=== PATIENT | male | born 1960 | race Caucasian/White ===

== ENCOUNTER → 2023-11-24 13:38 | Outpatient (REF) | payer MEDICARE, OTHER, SELFPAY | LOC: HWRAD 13:38 | PROVIDERS: ATTENDING PHYSICIAN Internal Medicine Rheumatology; FAMILY PHYSICIAN Nurse Practitioner Family | DX: R06.01 Orthopnea (principal); M16.10 Unilateral primary osteoarthritis, unspecified hip | CPT/HCPCS: 71046; 73523 ==

== ENCOUNTER → 2023-12-26 12:43 | Outpatient (REF) | payer MEDICARE, OTHER, SELFPAY | LOC: HWRCS 12:43 | PROVIDERS: ATTENDING PHYSICIAN Nurse Practitioner Family | DX: R06.01 Orthopnea (principal) | CPT/HCPCS: 93306 ==

== ENCOUNTER → 2024-08-19 17:05 | Outpatient (REF) | payer MEDICARE, OTHER, SELFPAY | LOC: MRI 17:05 | PROVIDERS: ATTENDING PHYSICIAN Internal Medicine Rheumatology; FAMILY PHYSICIAN Internal Medicine Geriatric Medicine | DX: L40.50 Arthropathic psoriasis, unspecified (principal); L40.53 Psoriatic spondylitis; N81.6 Rectocele; M54.6 Pain in thoracic spine | CPT/HCPCS: 72195 ==